=== PATIENT | male | born 1925 | race Caucasian/White ===

== ENCOUNTER 2016-12-02 03:42 | Emergency (ER) | payer MEDICARE, OTHER ==
[2016-12-02] MEDS ORDERED: D5 1/2 NS w/ 20 mEq/L KCl 1,000 ML IV SCH (05:45)
[2016-12-02 06:04] VITALS: BP 134/60
--- NOTE | 2016-12-02 06:18 | EDM.PDOC ---
ED HPI GENERAL MEDICAL PROBLEM - General Chief Complaint: General Stated Complaint: FALL VIA NORTH Time Seen by Provider: 12/02/16 04:25 Source of Information: Reports: Patient, Family History Limitations: Reports: No Limitations - History of Present Illness INITIAL COMMENTS - FREE TEXT/NARRATIVE: History of present illness: [89-year-old male is brought over from [facility]. He has fallen 2 or 3 times in last 24 hours. He is new to their facility and has been there for about 1 week. Usually at night he will sleep but apparently tonight he got up twice and was found down. He presents here with a right forehead subcutaneous hematoma but is not complaining of any pain. His is here as well and she wishes that they could have bed rails or some sort of warning mapped so that if he gets up the nurses would be aware of it.] Review of systems: As per history of present illness and below otherwise all systems reviewed and negative. Past medical history: As per history of present illness and as reviewed below otherwise noncontributory. Surgical history: As per history of present illness and as reviewed below otherwise noncontributory. Social history: No reported history of drug or alcohol abuse. Family history: As per history of present illness and as reviewed below otherwise noncontributory. Physical exam: HEENT: He has a subcutaneous hematoma in the right forehead that is going down I think as he's been here., normocephalic, pupils reactive, negative for conjunctival pallor or scleral icterus, mucous membranes moist, throat clear, neck supple, nontender, trachea midline. Lungs: Clear to auscultation, breath sounds equal bilaterally, he has bruises on his left lower chest. Heart: S1S2, regular, negative for clicks, rubs, or JVD. Abdomen: Soft, nondistended, nontender. Negative for masses or hepatosplenomegaly. Negative for costovertebral tenderness. Pelvis: Stable nontender. Genitourinary: Deferred. Rectal: Deferred. Extremities: Atraumatic, negative for cords or calf pain. Neurovascular unremarkable. Neuro: Awake, alert, oriented. Exam nonfocal. Diagnostics: [CT of the head neck chest abdomen pelvis was obtained due to this vague history of 2 or 3 falls in uncertainty as to what the concern was. The results of the studies do show possible acute compression fractures please see the report for details.] Therapeutics: [] Impression: [Weakness and fall risk Hematoma of the right forehead and contusion to the left lower chest] Plan: [Were returning him to the [facility] and we are advising them to try to get to a floor alarm for him so that the nurses can be alerted when he is getting out of bed.] Definitive disposition and diagnosis as appropriate pending reevaluation and review of above. - Related Data Allergies Allergy/AdvReac Type Severity Reaction Status Date / Time scopolamine Allergy unknown Verified 07/29/14 12:02 Home Meds: Home Meds Acetaminophen [Tylenol Extra Strength] 1 tab PO Q6H PRN 07/29/14 [History] Donepezil HCl [Aricept] 10 mg PO DAILY 07/29/14 [History] Flaxseed [Flaxseed Oil] 3 tab PO DAILY 07/29/14 [History] Lisinopril/Hydrochlorothiazide [Lisinopril-Hctz 10-12.5 mg Tab] 1 tab PO DAILY 07/29/14 [History] Metoprolol Tartrate 0.5 tab PO DAILY 07/29/14 [History] Nitroglycerin 1 tab SL ASDIRECTED PRN 07/29/14 [History] Aspirin 81 mg PO DAILY 12/02/16 [History] Citalopram [Celexa] 20 mg PO DAILY 12/02/16 [History] ClonazePAM [KlonoPIN] 1 mg PO ASDIRECTED 12/02/16 [History] ClonazePAM [KlonoPIN] 1 mg PO BEDTIME PRN 12/02/16 [History] Fluticasone Propionate [Flonase] 1 puff BOOKER DAILY 12/02/16 [History] Glycerin/Lanolin/Mineral Oil [Eucerin Intensive Repair Crm] 1 dose TOP BID 12/02 [History] Pramoxine HCl [Sarna] 222 ml TP ASDIRECTED PRN 12/02/16 [History] Triamcinolone Acetonide [Triamcinolone Acetonide 0.1% Crm] 1 dose TOP TID [History] risperiDONE [Risperdal] 0.25 mg PO Q12H PRN 12/02/16 [History] risperiDONE [Risperdal] 0.25 mg PO QAM 12/02/16 [History] Past Medical History HEENT History: Reports: Impaired Vision, Macular Degeneration Cardiovascular History: Reports: Hypertension Neurological History: Reports: Alzheimers Disease Hematologic History: Reports: B12 Deficiency - Infectious Disease History Infectious Disease History: Reports: Chicken Pox, Measles, Mumps - Past Surgical History Musculoskeletal Surgical History: Reports: Other (See Below) Other Musculoskeletal Surgeries/Procedures:: broken hip three years ago Social & Family History - Tobacco Use Smoking Status *Q: Unknown Ever Smoked - Recreational Drug Use Recreational Drug Use: No ED ROS GENERAL - Review of Systems Review Of Systems: ROS reveals no pertinent complaints other than HPI. ED EXAM, GENERAL - Physical Exam Exam: See Below Course - Vital Signs Last Recorded V/S: Last Vital Signs Temp 35.9 C 12/02/16 03:45 Pulse 55 L 12/02/16 03:45 Resp 18 12/02/16 03:45 BP 134/60 12/02/16 04:57 Pulse Ox 97 12/02/16 03:45 - Orders/Labs/Meds Orders: Active Orders 24 hr Category Date Time Status Cervical Spine wo Cont [CT] Stat Exams 12/02/16 03:53 Taken Chest Abdomen Pelvis wo Cont [CT] Stat Exams 12/02/16 03:54 Taken Head wo Cont [CT] Stat Exams 12/02/16 03:53 Taken D5 1/2 NS w/ 20 mEq/L KCl 1,000 ml Med 12/02/16 05:45 Active IV ASDIRECTED Medication Orders Potassium Chloride/Dextrose/Sod Cl (D5 1/2 Ns W/ 20 Meq/L Kcl) 1,000 mls @ 250 mls/hr IV ASDIRECTED TASH Last Admin: 12/02/16 05:52 Dose: 250 mls/hr Labs: Laboratory Tests 12/02/16 12/02/16 Range/Units 03:55 04:05 WBC 6.4 (4.5-11.0) K/uL RBC 3.75 L (4.30-5.90) M/uL Hgb 12.3 (12.0-15.0) g/dL Hct 37.7 L (40.0-54.0) % MCV 101 H (80-98) fL MCH 33 H (27-31) pg MCHC 33 (32-36) % Plt Count 179 (150-400) K/uL Neut % (Auto) 69 H (36-66) % Lymph % (Auto) 17 L (24-44) % [place] % (Auto) 12 H (2-6) % Eos % (Auto) 3 (2-4) % Baso % (Auto) 1 (0-1) % Sodium 145 (140-148) mmol/L Potassium 3.5 L (3.6-5.2) mmol/L Chloride 106 (100-108) mmol/L Carbon Dioxide 30 (21-32) mmol/L Anion Gap 12.5 (5.0-14.0) mmol/L BUN 30 H (7-18) mg/dL Creatinine 1.3 (0.8-1.3) mg/dL Est Cr Clr Drug Dosing 35.93 mL/min Estimated GFR (MDRD) 52 L (>60) Glucose 96 (74-106) mg/dL Calcium 8.5 (8.5-10.1) mg/dL Total Bilirubin 0.6 (0.2-1.0) mg/dL AST 21 (15-37) U/L ALT 19 (12-78) U/L Alkaline Phosphatase 97 (46-116) U/L Total Protein 6.0 L (6.4-8.2) g/dL Albumin 2.9 L (3.4-5.0) g/dL Globulin 3.1 (2.3-3.5) g/dL Albumin/Globulin Ratio 0.9 L (1.2-2.2) Meds: Medications Generic Name Dose Route Start Last Admin Trade Name Freq PRN Reason Stop Dose Admin Potassium Chloride/Dextrose/Sod Cl 1,000 mls @ 250 mls/hr 12/02/16 05:45 05:52 D5 1/2 Ns W/ 20 Meq/L Kcl IV 250 mls/hr ASDIRECTED TASH Administration Departure - Departure Time of Disposition: 06:17 Disposition: Home, Self-Care 01 Condition: Good Clinical Impression: Weakness Chest wall contusion Qualifiers: Encounter type: initial encounter Laterality: left Qualified Code(s): S20.212A - Contusion of left front wall of thorax, initial encounter Forehead contusion Qualifiers: Encounter type: initial encounter Qualified Code(s): S00.83XA - Contusion of other part of head, initial encounter - Discharge Information Forms: ED Department Discharge Additional Instructions: I would recommend that cannot have a mat alarm at his bed so that if he gets out of bed that the staff will be alerted to his getting out of bed. He is a fall risk. - My Orders Last 24 Hours: My Active Orders 12/02/16 03:53 Cervical Spine wo Cont [CT] Stat Head wo Cont [CT] Stat 12/02/16 03:54 Chest Abdomen Pelvis wo Cont [CT] Stat 12/02/16 05:45 D5 1/2 NS w/ 20 mEq/L KCl 1,000 ml IV ASDIRECTED - Assessment/Plan Last 24 Hours: My Active Orders 12/02/16 03:53 Cervical Spine wo Cont [CT] Stat Head wo Cont [CT] Stat 12/02/16 03:54 Chest Abdomen Pelvis wo Cont [CT] Stat 12/02/16 05:45 D5 1/2 NS w/ 20 mEq/L KCl 1,000 ml IV ASDIRECTED
== END 2016-12-02 08:54 | disposition home or self-care (01) ==
LOC: JP.ED 03:42
DX: S20.212A Contusion of left front wall of thorax, initial encounter (principal); S00.83XA Contusion of other part of head, initial encounter; R53.1 Weakness; I10 Essential (primary) hypertension; H54.7 Unspecified visual loss; Z79.82 Long term (current) use of aspirin; Z88.8 Allergy status to other drugs, medicaments and biological substances; W06.XXXA Fall from bed, initial encounter
CPT/HCPCS: 36415; 70450; 71250; 72125; 74176; 80053; 85025; 99284; J3480

== ENCOUNTER 2016-12-05 05:53 | Emergency (ER) | payer MEDICARE, OTHER ==
--- NOTE | 2016-12-05 06:45 | EDM.PDOC ---
<Cheko Whelan - Last Filed: 12/05/16 06:40> ED HPI GENERAL MEDICAL PROBLEM - General Chief Complaint: Behavioral/Psych Stated Complaint: MEDICAL VIA NORTH Time Seen by Provider: 12/05/16 06:30 Source of Information: Reports: Patient, Family, Shelter Records, Provider History Limitations: Reports: Altered Mental Status (Dementia and confusion limits patient's ability to answer questions for himself), Physical Impairment ( Extremely hard of hearing) - History of Present Illness INITIAL COMMENTS - FREE TEXT/NARRATIVE: 89-year-old male who has been at the [facility] for the past 3 weeks is sent in by ambulance because of inability to care for the patient due to outbursts of anger and agitation. He has been falling on a frequent basis, fell 2 days ago and was evaluated in the emergency room with CAT scans of the head neck chest abdomen and pelvis. He still has significant bruising on the right forehead and right face. Despite medications he tends to have outbursts in the evening and night and the nurse on duty last night felt unsafe. They are requesting he be transferred for psychiatric evaluation and stabilization before coming back. His said he had one episode similar to this just prior to being admitted to the [facility] that lasted 3-1/2 hours at home. He is now quieted down and cooperative. Onset: Unknown/Unsure Severity: Moderate Worsens with: Reports: Other (Tends to be worse in the evening and night hours) Associated Symptoms: Reports: Confusion. Denies: Fever/Chills, Shortness of Breath - Related Data Allergies Allergy/AdvReac Type Severity Reaction Status Date / Time scopolamine Allergy unknown Verified 12/05/16 06:06 Home Meds: Home Meds Acetaminophen [Tylenol Extra Strength] 1 tab PO Q6H PRN 07/29/14 [History] Donepezil HCl [Aricept] 10 mg PO DAILY 07/29/14 [History] Flaxseed [Flaxseed Oil] 3 tab PO DAILY 07/29/14 [History] Lisinopril/Hydrochlorothiazide [Lisinopril-Hctz 10-12.5 mg Tab] 1 tab PO DAILY 07/29/14 [History] Metoprolol Tartrate 0.5 tab PO DAILY 07/29/14 [History] Aspirin 81 mg PO DAILY 12/02/16 [History] Citalopram [Celexa] 20 mg PO DAILY 12/02/16 [History] ClonazePAM [KlonoPIN] 1 mg PO ASDIRECTED 12/02/16 [History] ClonazePAM [KlonoPIN] 1 mg PO BEDTIME PRN 12/02/16 [History] Glycerin/Lanolin/Mineral Oil [Eucerin Intensive Repair Crm] 1 dose TOP BID 12/02 [History] Pramoxine HCl [Sarna] 222 ml TP ASDIRECTED PRN 12/02/16 [History] Triamcinolone Acetonide [Triamcinolone Acetonide 0.1% Crm] 1 dose TOP TID [History] risperiDONE [Risperdal] 0.25 mg PO Q12H PRN 12/02/16 [History] risperiDONE [Risperdal] 0.25 mg PO QAM 12/02/16 [History] Cholecalciferol (Vitamin D3) [Vitamin D3] 1 tab PO DAILY 12/05/16 [History] Cyanocobalamin (Vitamin B-12) [Vitamin B-12] 1,000 mcg PO DAILY 12/05/16 [ History] Fluticasone Propionate [Flonase] 1 puff INH DAILY 12/05/16 [History] Lisinopril [Prinivil] 5 mg PO DAILY 12/05/16 [History] Magnesium 250 mg PO DAILY 12/05/16 [History] Past Medical History HEENT History: Reports: Impaired Vision, Macular Degeneration Cardiovascular History: Reports: Hypertension Neurological History: Reports: Alzheimers Disease Hematologic History: Reports: B12 Deficiency - Infectious Disease History Infectious Disease History: Reports: Chicken Pox, Measles, Mumps - Past Surgical History Musculoskeletal Surgical History: Reports: Other (See Below) Other Musculoskeletal Surgeries/Procedures:: broken hip three years ago Social & Family History - Tobacco Use Smoking Status *Q: Never Smoker - Caffeine Use Caffeine Use: Reports: Coffee - Recreational Drug Use Recreational Drug Use: No ED ROS GENERAL - Review of Systems Review Of Systems: Unable To Obtain ED EXAM, BEHAVIORAL HEALTH - Physical Exam Exam: See Below Exam Limited By: Physical Impairment (Extremely hard of hearing) General Appearance: Alert, No Apparent Distress Eye Exam: Bilateral Eye: EOMI, Periorbital Changes (There is some periorbital bruising around the right eye) Throat/Mouth: Normal Inspection Head: Other (A few small abrasions on the right forehead and face with some bruising present) Neck: Supple Respiratory/Chest: No Respiratory Distress, Lungs Clear Cardiovascular: Regular Rate, Rhythm. No: Extra Beats GI/Abdominal: Normal Bowel Sounds, Soft, Non-Tender Extremities: No: Pedal Edema Neurological: Alert, Disoriented to Place, Disoriented to Time Psychiatric: Alert, Flat Affect, Disoriented, Inattentive. No: Restless, Tearful, Agitated Skin Exam: Warm, Dry, Other (Some bruising around the right face) COURSE, BEHAVIORAL HEALTH COMP - Course Vital Signs: Last Vital Signs Temp 97.2 F 12/05/16 07:39 Pulse 72 12/05/16 12:34 Resp 16 12/05/16 12:34 BP 128/66 12/05/16 12:34 Pulse Ox 91 L 12/05/16 12:34 Orders, Labs, Meds: Active Orders 24 hr Category Date Time Status Metoprolol Succinate [Toprol XL] Med 12/05/16 12:00 Active 25 mg PO DAILY risperiDONE [RisperiDAL] Med 12/05/16 12:00 Active 0.25 mg PO DAILY Medication Orders Metoprolol Succinate (Toprol Xl) 25 mg PO DAILY [facility] Last Admin: 12/05/16 12:34 Dose: 25 mg Risperidone (Risperidal) 0.25 mg PO DAILY [facility] Last Admin: 12/05/16 12:30 Dose: 0.25 mg Laboratory Tests 12/05/16 12/05/16 12/05/16 Range/Units 06:47 06:47 09:54 WBC 4.8 (4.5-11.0) K/uL RBC 3.75 L (4.30-5.90) M/uL Hgb 12.6 (12.0-15.0) g/dL Hct 37.7 L (40.0-54.0) % MCV 101 H (80-98) fL MCH 34 H (27-31) pg MCHC 33 (32-36) % Plt Count 175 (150-400) K/uL Neut % (Auto) 62 (36-66) % Lymph % (Auto) 22 L (24-44) % [place] % (Auto) 11 H (2-6) % Eos % (Auto) 4 (2-4) % Baso % (Auto) 1 (0-1) % Sodium 144 (140-148) mmol/L Potassium 3.1 L (3.6-5.2) mmol/L Chloride 104 (100-108) mmol/L Carbon Dioxide 32 (21-32) mmol/L Anion Gap 11.1 (5.0-14.0) mmol/L BUN 27 H (7-18) mg/dL Creatinine 1.0 (0.8-1.3) mg/dL Est Cr Clr Drug Dosing 51.71 mL/min Estimated GFR (MDRD) > 60 (>60) Glucose 93 (74-106) mg/dL Calcium 8.7 (8.5-10.1) mg/dL TSH, Ultra Sensitive 1.983 (0.358-3.740) uIU/mL Urine Color Urine Appearance Urine pH (4.5-8.0) Ur Specific [place] (1.008-1.030) Urine Protein (NEGATIVE) mg/dL Urine Glucose (UA) (NEGATIVE) mg/dL Urine Ketones (NEGATIVE) mg/dL Urine Occult Blood (NEGATIVE) Urine Nitrite (NEGAITVE) Urine Bilirubin (NEGATIVE) Urine Urobilinogen (NORMAL) mg/dL Ur Leukocyte Esterase (NEGATIVE) Urine RBC (0-5) Urine WBC (0-5) Ur Epithelial Cells Amorphous Sediment Urine Bacteria Urine Mucus Urine Opiates Screen Negative (NEGATIVE) Ur Oxycodone Screen Negative (NEGATIVE) Urine Methadone Screen Negative (NEGATIVE) Ur Propoxyphene Screen Negative (NEGATIVE) Ur Barbiturates Screen Negative (NEGATIVE) Ur Tricyclics Screen Negative (NEGATIVE) Ur Phencyclidine Scrn Negative (NEGATIVE) Ur Amphetamine Screen Negative (NEGATIVE) U Methamphetamines Scrn Negative (NEGATIVE) Urine MDMA Screen Negative (NEGATIVE) U Benzodiazepines Scrn Positive H (NEGATIVE) U Cocaine Metab Screen Negative (NEGATIVE) U Marijuana (THC) Screen Negative (NEGATIVE) 12/05/16 Range/Units 09:54 WBC (4.5-11.0) K/uL RBC (4.30-5.90) M/uL Hgb (12.0-15.0) g/dL Hct (40.0-54.0) % MCV (80-98) fL MCH (27-31) pg MCHC (32-36) % Plt Count (150-400) K/uL Neut % (Auto) (36-66) % Lymph % (Auto) (24-44) % [place] % (Auto) (2-6) % Eos % (Auto) (2-4) % Baso % (Auto) (0-1) % Sodium (140-148) mmol/L Potassium (3.6-5.2) mmol/L Chloride (100-108) mmol/L Carbon Dioxide (21-32) mmol/L Anion Gap (5.0-14.0) mmol/L BUN (7-18) mg/dL Creatinine (0.8-1.3) mg/dL Est Cr Clr Drug Dosing mL/min Estimated GFR (MDRD) (>60) Glucose (74-106) mg/dL Calcium (8.5-10.1) mg/dL TSH, Ultra Sensitive (0.358-3.740) uIU/mL Urine Color Yellow Urine Appearance Slightly cloudy Urine pH 5.0 (4.5-8.0) Ur Specific [place] 1.020 (1.008-1.030) Urine Protein Negative (NEGATIVE) mg/dL Urine Glucose (UA) Normal (NEGATIVE) mg/dL Urine Ketones 15 H (NEGATIVE) mg/dL Urine Occult Blood Negative (NEGATIVE) Urine Nitrite Negative (NEGAITVE) Urine Bilirubin Negative (NEGATIVE) Urine Urobilinogen Normal (NORMAL) mg/dL Ur Leukocyte Esterase Negative (NEGATIVE) Urine RBC Not seen (0-5) Urine WBC 0-5 (0-5) Ur Epithelial Cells Not seen Amorphous Sediment Few Urine Bacteria Rare Urine Mucus Moderate Urine Opiates Screen (NEGATIVE) Ur Oxycodone Screen (NEGATIVE) Urine Methadone Screen (NEGATIVE) Ur Propoxyphene Screen (NEGATIVE) Ur Barbiturates Screen (NEGATIVE) Ur Tricyclics Screen (NEGATIVE) Ur Phencyclidine Scrn (NEGATIVE) Ur Amphetamine Screen (NEGATIVE) U Methamphetamines Scrn (NEGATIVE) Urine MDMA Screen (NEGATIVE) U Benzodiazepines Scrn (NEGATIVE) U Cocaine Metab Screen (NEGATIVE) U Marijuana (THC) Screen (NEGATIVE) Medications Generic Name Dose Route Start Last Admin Trade Name Freq PRN Reason Stop Dose Admin Metoprolol Succinate 25 mg 12/05/16 12:00 12/05/16 12:34 Toprol Xl PO 25 mg DAILY TASH Administration Risperidone 0.25 mg 12/05/16 12:00 12/05/16 12:30 Risperidal PO 0.25 mg DAILY TASH Administration Discontinued Medications Generic Name Dose Route Start Last Admin Trade Name Thony PRN Reason Stop Dose Admin Citalopram Hydrobromide 20 mg 12/05/16 11:48 12/05/16 12:34 Celexa PO 12/05/16 11:49 20 mg ONETIME ONE Administration Clonazepam 1 mg 12/05/16 11:48 12/05/16 12:30 Klonopin PO 12/05/16 11:49 1 mg NOW STA Administration Donepezil HCl 10 mg 12/05/16 11:48 12/05/16 12:30 Aricept PO 12/05/16 11:49 10 mg ONETIME ONE Administration Lisinopril 10 mg 12/05/16 11:48 12/05/16 12:33 Prinivil PO 12/05/16 11:49 10 mg ONETIME ONE Administration Re-Assessment/Re-Exam: Patient has not significantly fallen since Sunday and does not appear to be in discomfort or complain of pain, no further imaging is necessary at this time. A CBC BMP and TSH were obtained, and phone calls were made to check for openings at the senior behavioral unit. Dr. Moran took over patient care at 7 AM. Departure - Departure Disposition: DC/[facility] to [facility] Clinical Impression: Delusion, Dementia - Discharge Information Forms: ED Department Discharge - My Orders Last 24 Hours: My Active Orders 12/05/16 12:00 Metoprolol Succinate [Toprol XL] 25 mg PO DAILY risperiDONE [RisperiDAL] 0.25 mg PO DAILY - Assessment/Plan Last 24 Hours: My Active Orders 12/05/16 12:00 Metoprolol Succinate [Toprol XL] 25 mg PO DAILY risperiDONE [RisperiDAL] 0.25 mg PO DAILY <OfficerKirill - Last Filed: 12/05/16 14:25> Departure - Departure Time of Disposition: 14:25 Condition: Poor - Assessment/Plan Plan: Assessment Acuity = acute on chronic Site and laterality = 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
[2016-12-05] MEDS ORDERED: ClonazePAM 1 MG Tab PO STA (11:48)
[2016-12-05] MEDS ORDERED: Citalopram 20 MG Tab PO ONE (11:48)
[2016-12-05] MEDS ORDERED: Donepezil 10 MG Tab PO ONE (11:48)
[2016-12-05] MEDS ORDERED: Lisinopril 10 MG Tab PO ONE (11:48)
[2016-12-05] MEDS ORDERED: Metoprolol Succinate 25 MG Tab.ER PO SCH (12:00)
[2016-12-05] MEDS ORDERED: risperiDONE 0.25 MG Tab PO SCH (12:00)
[2016-12-05 12:34] VITALS: BP 128/66
== END 2016-12-05 14:55 ==
LOC: JP.ED 05:53
DX: G30.9 Alzheimer's disease, unspecified (principal); F02.80 Dementia in other diseases classified elsewhere, unspecified severity, without behavioral disturbance, psychotic disturbance, mood disturbance, and anxiety; F22 Delusional disorders; I10 Essential (primary) hypertension; Z79.899 Other long term (current) drug therapy
CPT/HCPCS: 36415; 80048; 80305; 81001; 84443; 85025; 99285; A9270; 99283